=== PATIENT | male | born 1930 | race African-American/Black ===

== ENCOUNTER → 2020-04-12 | Outpatient (CLI) | payer MEDICARE, MEDICAID ==
[~2020-04-12] MED LIST: AMLO10TA80 PO; APIX2.5T PO; ATOR-2 PO; DUTA0.5C16 PO; FURO-151 PO; LISI-604 PO; METO100T16 PO
== END | disposition home or self-care (01) ==
LOC: LAB 14:14
PROVIDERS: ATTEND Surgery
DX: Z01.818 Encounter for other preprocedural examination (principal); Z11.59 Encounter for screening for other viral diseases
CPT/HCPCS: C9803; U0003

== ENCOUNTER → 2020-04-15 | Day surgery (SDC) | payer MEDICARE, MEDICAID ==
[~2020-04-15] VITALS: Ht 180.3 cm; Wt 91.6 kg
[~2020-04-15] MED LIST changes: +BUPIVACAINE HCL 0.5% (5MG/ML) 50ML ONE; +CEFAZOLIN SODIUM 1000MG/VIAL ONE; +EPHEDRINE SULFATE 50MG/ML VIAL ONE; +FENTANYL CITRATE/PF 50MCG/ML 2ML VIAL ONE; +GLYCOPYRROLATE 0.2 MG/ML 2ML VIAL ONE; +LACTATED RINGERS 1,000 ML IV SCH; +LIDOCAINE HCL/PF 1% 10 MG/ML 5ML VIAL ONE; +MIDAZOLAM HCL 2 MG/2 ML VIAL ONE; +PHENYLEPHRINE HCL 10 MG/ML 1ML (IV VIAL) IV ONE; +PROPOFOL 200MG/20ML VIAL IV ONE; +ROCURONIUM BROMIDE 10MG/ML VIAL 5ML IV ONE; +SKIN ADHESIVE 0.7 GM EA TOP ONE; +SODIUM CHLORIDE 0.9% 10ML VIAL ONE; +SUCCINYLCHOLINE CHLORIDE 200MG/10ML IV ONE
== END | disposition home or self-care (01) ==
LOC: OR 05:55
PROVIDERS: ATTEND Surgery
DX: K40.90 Unilateral inguinal hernia, without obstruction or gangrene, not specified as recurrent (principal); Z53.8 Procedure and treatment not carried out for other reasons; I48.91 Unspecified atrial fibrillation; N40.0 Benign prostatic hyperplasia without lower urinary tract symptoms; Z79.899 Other long term (current) drug therapy
CPT/HCPCS: 93005; J0690; J3490; J0330; J2250; J2370; J2704; J3010

== ENCOUNTER → 2020-07-29 | Outpatient (CLI) | payer MEDICARE, MEDICAID ==
[~2020-07-29] MED LIST changes: +BICA50TA7 PO; -BUPIVACAINE HCL 0.5% (5MG/ML) 50ML ONE; -CEFAZOLIN SODIUM 1000MG/VIAL ONE; -EPHEDRINE SULFATE 50MG/ML VIAL ONE; +KETOROLAC 30MG/ML VIAL ONE; -LACTATED RINGERS 1,000 ML IV SCH; -LIDOCAINE HCL/PF 1% 10 MG/ML 5ML VIAL ONE; +METOCLOPRAMIDE HCL 10MG/2ML VIAL ONE; -MIDAZOLAM HCL 2 MG/2 ML VIAL ONE; +NEOSTIGMINE METHYLSULFATE 1MG/ML 10 ML VIAL ONE; +ONDANSETRON HCL 4MG/2ML INJ ONE; -PHENYLEPHRINE HCL 10 MG/ML 1ML (IV VIAL) IV ONE; -PROPOFOL 200MG/20ML VIAL IV ONE; -ROCURONIUM BROMIDE 10MG/ML VIAL 5ML IV ONE; -SKIN ADHESIVE 0.7 GM EA TOP ONE; -SODIUM CHLORIDE 0.9% 10ML VIAL ONE; -SUCCINYLCHOLINE CHLORIDE 200MG/10ML IV ONE; +TAMS-11 PO
== END | disposition home or self-care (01) ==
LOC: LAB 10:53
PROVIDERS: ATTEND Surgery
DX: Z01.812 Encounter for preprocedural laboratory examination (principal); Z20.828 Contact with and (suspected) exposure to other viral communicable diseases
CPT/HCPCS: C9803; U0003

== ENCOUNTER → 2020-07-31 | Day surgery (SDC) | payer MEDICARE, MEDICAID ==
[~2020-07-31] VITALS: Ht 180.3 cm; Wt 86.6 kg
[~2020-07-31] MED LIST changes: +BUPIVACAINE HCL 0.5% (5MG/ML) 50ML ONE; +CEFAZOLIN SODIUM 1000MG/VIAL ONE; -GLYCOPYRROLATE 0.2 MG/ML 2ML VIAL ONE; -KETOROLAC 30MG/ML VIAL ONE; +LACTATED RINGERS 1,000 ML IV SCH; +LIDOCAINE HCL 1% 20ML VIAL (Pyxis) INJ ONE; -METOCLOPRAMIDE HCL 10MG/2ML VIAL ONE; +MIDAZOLAM HCL 2 MG/2 ML VIAL ONE; -NEOSTIGMINE METHYLSULFATE 1MG/ML 10 ML VIAL ONE; -ONDANSETRON HCL 4MG/2ML INJ ONE; +POTASSIUM CHLORIDE 20MEQ/10ML INJ IV ONE; +PROPOFOL 200MG/20ML VIAL IV ONE; +ROCURONIUM BROMIDE 10MG/ML VIAL 5ML IV ONE; +SKIN ADHESIVE 0.7 GM EA TOP ONE
[2020-07-31 08:17] LABS: BASOPHILS % 0.5 % (0.0-2.0); EOSINOPHILS % 1.9 % (0.0-5.0); HEMATOCRIT. 34.9 % (42.0-52.0); LYMPHOCYTES % 34.6 % (20.0-50.0); MEAN CORPUSCULAR HEMOGLOBIN 30.6 pg (28.0-32.0); MEAN CORPUSCULAR VOLUME 88.9 fL (80.0-94.0); MEAN PLATELET VOLUME 8.1 fl (7.4-10.4); MONOCYTES % 8.5 % (2.0-8.0); NEUTROPHILS % 54.5 % (40.0-76.0); PLATELET 235 x1000/uL (130-400); RED BLOOD CELL COUNT 3.93 mill/uL (4.7-6.1); RED CELL DISTRIBUTION WIDTH 14.8 % (11.6-14.6)
[2020-07-31 08:22] LABS: INR 1.1; PARTIAL THROMBOPLASTIN TIME 30.5 sec (23.4-31.0); PROTHROMBIN TIME 11.4 sec (9.6-11.0)
[2020-07-31 09:21] LABS: CLARITY URINE CLEAR (CLEAR); COLOR URINE YELLOW (YELLOW); KETONES URINE NEGATIVE (NEGATIVE); LEUKOCYTE ESTERASE URINE TRACE (NEGATIVE); NITRITE URINE NEGATIVE (NEGATIVE); OCCULT BLOOD URINE NEGATIVE (NEGATIVE); PROTEIN URINE TRACE (NEGATIVE); UROBILINOGEN URINE 0.2 E.U./dL (0.2-1.0)
== END | disposition home or self-care (01) ==
LOC: OR 06:40
PROVIDERS: ATTEND Surgery
DX: K40.90 Unilateral inguinal hernia, without obstruction or gangrene, not specified as recurrent (principal); I10 Essential (primary) hypertension; E78.00 Pure hypercholesterolemia, unspecified; M19.90 Unspecified osteoarthritis, unspecified site; N40.0 Benign prostatic hyperplasia without lower urinary tract symptoms; I48.91 Unspecified atrial fibrillation; Z79.899 Other long term (current) drug therapy; Z98.890 Other specified postprocedural states
CPT/HCPCS: 36415; 49650; 71045; 80048; 81003; 85025; 85610; 85730; C1781; J0690; J1885; J2250; J2405; J2704; J2710; J2765; J3010; J3480; J3490